=== PATIENT | female | born 1945 | race African-American/Black ===

== ENCOUNTER → 2016-12-27 | Outpatient (CLI) | payer MEDICARE, OTHER ==
[~2016-12-27] MED LIST: ASPI-110 PO; ATOR10TA15 PO; CO Q100C9 PO; DIOV160T3 PO; EMPA1TAB PO; EMPA1TAB11 PO; FERR325T8 PO; GARL200T2 PO; KLOR20TA6 PO; LASI20TA PO; LOSA100T2 PO; MAGN400T PO; MAGO400T2 PO; MULT1TAB46 PO; OXYC1TAB63 PO; PLAV75TA29 PO; POTA-243 PO; TRIL135C PO; VITA-136 PO; VITA100064 PO; VITA500T49 PO; VITA500T83 PO
[2016-12-27 15:07] LABS: AUTOMATED NEUTROPHIL # 5.3 TH/MM3 (1.8-7.7); BASOPHIL % 0.5 % (0.0-2.0); EOSINOPHIL # 0.2 TH/MM3 (0-0.4); EOSINOPHIL % 2.6 % (0.0-4.0); HEMATOCRIT 34.5 % (35.0-46.0); HEMO FLAGS DIFF FINAL; LYMPH % 31.4 % (9.0-44.0); LYMPHOCYTE # 2.8 TH/MM3 (1.0-4.8); MEAN CELL VOLUME 85.6 FL (80.0-100.0); MEAN CORPUSCULAR HEMOGLOBIN 28.4 PG (27.0-34.0); MEAN CORPUSCULAR HGB CONC 33.1 % (32.0-36.0); MONO % 6.7 % (0.0-8.0); NEUT % 58.8 % (16.0-70.0); PLATELET COUNT 207 TH/MM3 (150-450); RED BLOOD COUNT 4.03 MIL/MM3 (4.00-5.30); RED CELL DISTRIBUTION WIDTH 14.7 % (11.6-17.2)
[2016-12-27 15:25] LABS: PROTHROMBIN TIME - PATIENT 11.4 SEC (9.8-11.6)
[2016-12-27 15:28] LABS: ALT (GPT) 38 U/L (10-53); ANION GAP 11 MEQ/L (5-15); AST (GOT) 30 U/L (15-37); BICARBONATE 26.8 MEQ/L (21.0-32.0); BLOOD UREA NITROGEN 18 MG/DL (7-18); CHLORIDE 102 MEQ/L (98-107); GLOMERULAR FILTRATION RATE 59 ML/MIN (>89); GLUCOSE,FASTING 150 MG/DL (74-99); POTASSIUM 3.3 MEQ/L (3.5-5.1); SODIUM (NA) 140 MEQ/L (136-145)
[2016-12-27 15:30] LABS: ALKALINE PHOSPHATASE 102 U/L (45-117); TOTAL BILIRUBIN ADULT 0.7 MG/DL (0.2-1.0)
--- NOTE | 2016-12-27 17:21 | RADRPT ---
EXAM DATE/TIME: 12/27/2016 15:13 [place] COMPARISON: No previous studies available for comparison. INDICATIONS : Evaluate for pneumothorax, pneumonia and communicable diseases. Pre-op for Hysterectomy. MEDICAL HISTORY : Hypertension. Diabetes mellitus type II. Asthma. SURGICAL HISTORY : None. ENCOUNTER: Initial ACUITY: 1 day PAIN SCORE: 0/10 LOCATION: Bilateral chest FINDINGS: There is a right subclavian line in place with the tip overlying the SVC. A pneumothorax is not seen. The heart size is normal. Lungs are grossly clear. There are compressive changes at several thoracic and lumbar vertebral bodies. No effusion is seen. Old right rib fractures are seen. Clips are seen i n the upper quadrant. CONCLUSION: No acute cardiopulmonary process. Rodolfo Mcguire MD on December 27, 2016 at 17:17 Board Certified Radiologist. This report was verified electronically.
--- NOTE | 2016-12-29 08:57 | EKG ---
Date Performed: 12/27/2016 Time Performed: 14:27:55 PTAGE: 71 years EKG: Sinus rhythm WITH SINUS ARRHYTHMIA NORMAL ECG NO PREVIOUS TRACING DOCTOR: Rickie Moreland Interpretating Date/Time 12/29/2016 08:53:55
== END ==
LOC: CPRE 13:55
PROVIDERS: ATTEND Obstetrics & Gynecology Gynecologic Oncology
DX: Z01.812 Encounter for preprocedural laboratory examination (principal); Z01.811 Encounter for preprocedural respiratory examination; Z01.810 Encounter for preprocedural cardiovascular examination; C54.1 Malignant neoplasm of endometrium
CPT/HCPCS: 36415; 71020; 80053; 85025; 85610; 85730; 93005

== ENCOUNTER 2017-01-18 06:11 | Day surgery (SDC) | payer MEDICARE, OTHER ==
[2017-01-18] VITALS (10 sets, daily range): BP systolic 148–212; BP diastolic 74–112; PULSE 85–98; RESP 16–18; TEMP 97.9–99; O2SAT 95–98
[~2017-01-18] VITALS: Ht 152.4 cm; Wt 86.0 kg
[~2017-01-18 06:11] MED LIST changes: -ATOR10TA15 PO; -DIOV160T3 PO; -EMPA1TAB PO; -KLOR20TA6 PO; -LASI20TA PO; -MAGN400T PO; -OXYC1TAB63 PO; -PLAV75TA29 PO; -TRIL135C PO
[2017-01-18] MEDS ORDERED: ASPIRIN EC 81 MG TABEC PO PRN (07:00)
[2017-01-18] MEDS ORDERED: IOHEXOL 350 MG/ML 100 ML BTL (for Cath Lab) OTHER ONE (07:20)
[2017-01-18] MEDS ORDERED: HEPARIN-NS/PF INJ 1,000 ML ONE (07:46)
[2017-01-18 07:53] LABS: AUTOMATED NEUTROPHIL # 4.6 TH/MM3 (1.8-7.7); BASOPHIL % 0.4 % (0.0-2.0); EOSINOPHIL # 0.1 TH/MM3 (0-0.4); EOSINOPHIL % 1.6 % (0.0-4.0); HEMATOCRIT 32.8 % (35.0-46.0); HEMO FLAGS DIFF FINAL; LYMPH % 28.7 % (9.0-44.0); LYMPHOCYTE # 2.1 TH/MM3 (1.0-4.8); MEAN CORPUSCULAR HGB CONC 33.8 % (32.0-36.0); MONO % 8.2 % (0.0-8.0); NEUT % 61.1 % (16.0-70.0); PLATELET COUNT 172 TH/MM3 (150-450); RED BLOOD COUNT 3.82 MIL/MM3 (4.00-5.30); RED CELL DISTRIBUTION WIDTH 14.7 % (11.6-17.2); WHITE BLOOD COUNT 7.5 TH/MM3 (4.0-11.0)
[2017-01-18 08:02] LABS: APTT (PATIENT) 41.2 SEC (24.3-30.1); PROTHROMBIN TIME - PATIENT 10.8 SEC (9.8-11.6)
[2017-01-18] MEDS ORDERED: HEPARIN SODIUM - IV 10,000 UNITS/10 ML VIAL ONE (08:15)
[2017-01-18] MEDS ORDERED: NITROGLYCERIN-D5W 50 MG/250 ML 250 ML ONE (08:19)
[2017-01-18 08:22] LABS: BICARBONATE 25.7 MEQ/L (21.0-32.0); POTASSIUM 3.1 MEQ/L (3.5-5.1)
[2017-01-18] MEDS ORDERED: ATROPINE SULFATE 1 MG/10 ML SYRINGE ONE (08:30)
[2017-01-18] MEDS ORDERED: CLOPIDOGREL 300 MG TAB ONE (08:38)
[2017-01-18] MEDS ORDERED: ASPIRIN 81 MG CHEW TAB ONE (08:38)
--- NOTE | 2017-01-18 09:06 | CATHPROC ---
[employer] HIS Report Study Information Study Number Admission Scheduled Start Study Start [id number] Jan 18 2017 6:11AM 01/18/2017 Jan 18 2017 7:31AM [place] Service Cardiac Catheterization Admit Source Facility Department Other [facility] - Bail Bonding Agent Physician and Clinical Staff Initial Lopez Adams Athletic Coach Chad Cervantes,JAMAAL Recorder Mikey Doran,CONCRETE FORM SETTER AND FINISHER(BS) Recorder Pedro Everett,RT(R) ScrKamala Lyons,RT(R) (BS) Procedures Performed Procedure Location (Site) Vessel Name Coronary Angiograms LCA Left Coronary Coronary Angiograms RCA Right Coronary LV Gram-hand inj. LV LV Ventricle PTCA RCA Prox Right Coronary Stent RCA Prox Right Coronary Wire insertion Fem Art (right) Femoral Art Equipment Time Air Motor Repairer Description Size Mfg Part Number Used/Scraped [id number] 08:15 [employer] WIRE, ASAHI PROWATER 180CM 180CM Used *[id number] CATHETER, FR5 SWAN VICKY 07:53 FISH PISANO FR 5 [id number] *[id number] Used MONITOR TRANSDUCER, TRUWAVE [id number] 07:35 FISH PISANO * Used W/STOCKCOCK *[id number] 08:22 [employer] SCI[employer]IFIC BALLOON, 3.0 12MM EMERGE MR 3.0 12MM Used *[id number] *[id number] *[id number] [id number] *[id number] 07:35 [employer] INDUSTRIES PACK, CCL CUSTOM * Used *[id number] 07:35 [employer] PACER PEN, SKIN DUAL W/ RULER * Used *[id number] 08:24 MEDTRONIC STENT, 4.0 18 INTEGRITY 4.0 18 Used *[id number] 08:23 KSE [employer]ICAL 30 MANJIT INDEFLATOR Used *[id number] PSI-4F-- 07:54 [employer] SHEATH, FR4.5 PRELUDE 11CM FR 4.5 Used [id number] 07:53 [employer] SHEATH, FR5.5 PRELUDE 11CM FR 5 [id number] 08:15 [employer] SHEATH, FR6.5 PRELUDE 11CM FR 6.5 038ACT Used *[id number] 07:35 [employer] WIRE, 3MMJ .035 180CM 180CM Used *[id number] 07:35 NAMIC MANIFOLD, 4 PORT * Used *[id number] 07:35 [employer]COMED OMNIPAQUE, 350 MG, 150ML 150ML [id number] Used [id number] 07:35 [employer] BLANKET,WARM AIR CCL * Used *[id number] 07:35 TERUMO MEDICAL SHEATH, FR4 TERUMO (10CM) FR 4 Used *[id number] Equipment Model, Serial, Lot Number and Expiration Data Description Model Number Serial Number Lot Number Expiration Date BALLOON, 3.0 12MM EMERGE MR [id number] 07-26-2019 SHEATH, FR6.5 PRELUDE 11CM [id number] 11-12-2019 STENT, 4.0 18 INTEGRITY [id number] 11-02-2017 History: Current Medications Medication Dosage/Unit Route Frequency Last Date/Time Taken Glucophage History: Allergies Allergy Reaction No Known Allergies History: Risk Factors Family History of Hypertension Dyslipidemia Previous [place] Previous Heart Failure Premature CAD Yes No No No No Prior Valve Prior PCI Prior CABG Surgery No No No Cerebrovascular Peripheral Artery Chronic Lung On Dialysis Diabetes Diabetes Therapy Disease Disease Disease No No No No Yes Oral History: Stress Tests Stress or Imaging Studies Performed Yes Standard Exercise Stress Test No Stress Echo No Stress Test SPECT Stress Test SPECT Result Stress Test SPECT Ischemia Risk/Extent Yes Positive Intermediate Stress Test CMR No Cardiac CTA Coronary Calcium Score No No History: Other Disease Selection Items Cancer HTN History: Other Current Smoker No Labs Hgb (g/dl) Hct (%) RBC (MIL/MM3) WBC (l/cumm) Platelets (thousands) 11.60-17.00 35.00-51.00 4.00-5.90 4.00-11.00 150.00-450.00 11.1 32.8 3.8 7.5 172 Glucose (mg/dl) BUN (mg/dl) Creatinine (mg/dl) BUN:Creatinine (1:x) 74.00-106.00 7.00-18.00 0.50-1.30 10.00-20.00 192 18 1.1 16.4 Na (meq/l) K (meq/l) Cl (meq/l) CO2 (mmol/L) Ca (mg/dl) 136.00-145.00 3.50-5.10 98.00-107.00 21.00-32.00 8.50-10.10 138 3.1 102 25.7 8.6 PT (sec) PTT (sec) INR (PTT:PT) 9.80-11.60 24.30-30.10 0.90-1.10 10.8 41.2 1 CPK-MB (ng/ML) 0.50-3.60 Not Drawn Medication Medication Total Dose (Bolus/Oral) Medication Total Dosage/Unit 1% XYLOCAINE 10 mL ASPIRIN 81 mg HEPARIN 5300 units PLAVIX 300 mg Medications (Bolus/Oral) Medication Time Given Dosage/Unit Administered By Reason 1% XYLOCAINE 01/18/2017 7:59:50 AM 10 mL Lopez Gallego 10 mL 1% XYLOCAINE given in lab by Lopez Gallego in Right Groin via Subcutaneous. Ordered by Lopez Grissom. HEPARIN 01/18/2017 8:16:47 AM 5300 units Chad Cervantes 5300 units HEPARIN given in lab by Chad Cervantes RN via Peripheral IV. Ordered by Lopez Gallego. PLAVIX 01/18/2017 8:42:49 AM 300 mg Chad Cervantes 300 mg PLAVIX given in lab by Chad Cervantes RN via Oral. Ordered by Lopez Gallego. ASPIRIN 01/18/2017 8:42:58 AM 81 mg Chad Cervantes 81 mg ASPIRIN given in lab by Chad Cervantes RN via Subcutaneous. Ordered by Lopez Gallego. Medication (Drip) Medication Time Given Dosage/Unit Concentration/Unit Diluent (ml) Solution IV Solutions 01/18/2017 7:32:35 AM 0 mL (IV) 500 NaCl .9 Patient arrived on IV Solutions via Central IV. Pump/Drip Flow = 20 ml/hr using NaCl .9. Ordered by Lopez Clay. NITROGLYCERIN DRIP 01/18/2017 8:21:30 AM 50 mcg/min 50 mg 250 D5W 50 mcg/min NITROGLYCERIN DRIP given in lab by Chad Cervantes RN via Peripheral IV. Pump/Drip Flow = 15 ml/hr using D5W with a concentration of 50 mg in 250 ml. Ordered by Lopez Gallego. Initial Case Assessment Cardiovascular HR Rhythm NIBP Chest Pain 88 SR 175/86 0 Edema Present Skin color Skin None Normal Warm Dry Circulatory - Right Pulses Dorsalis Pedis Femoral 1 2 Scale (0,1,2,3,4,d) Circulatory - Left Pulses Dorsalis Pedis Femoral 1 2 Scale (0,1,2,3,4,d) Circulatory - Lower Extremities Color Lower Right Color Lower Left Normal Normal Neurological State Oriented to time-place- Alert Moves all extremities person Respiration - General Respiration Rate SpO2 (%) O2 (lpm) (B/min) 25 95 0 Final Case Assessment Cardiovascular HR Rhythm NIBP Chest Pain 78 Sinus 155/78 0 Edema Present Skin color Skin None Normal Warm Dry Circulatory - Right Pulses Dorsalis Pedis Femoral 1 2 Scale (0,1,2,3,4,d) Circulatory - Left Pulses Dorsalis Pedis Femoral 1 2 Scale (0,1,2,3,4,d) Neurological State Oriented to time-place- Alert Moves all extremities person Respiration - General Respiration Rate SpO2 (%) O2 (lpm) (B/min) 16 95 0 Chronological Log Time Study Chronological Log 7:30:49 Patient arrived via Bed. 7:30:51 Patient Name, D.O.B, / Armband Verified By R.N. 7:30:52 Consent signed by the physician and the patient and verified by the Bail Bonding Agent staff. 7:30:53 Pre-op and post- op instructions given; patient acknowledges understanding of instructions. 7:30:54 Verbal Stimulation=2 Physical Stimulation=2 Airway=2 Respiration=2 TOTAL=8. (0=absent, 1=li mited, 2=present) 7:31:54 Patient has been NPO for More than 6Hrs. 7:32:25 Skin Breakdown- none per patient. 7:32:26 Patient Warmer Placed on the Table. 7:32:34 A # 20 IV was noted in the Subclav. Vein (Rt). Grade = 0 7:32:35 Patient arrived on IV Solutions via Central IV. Pump/Drip Flow = 20 ml/hr using NaCl .9. Or dered by Lopez Gallego. 7:32:38 History and physical on the chart or being dictated. Assessment: Initial Case, HR=88 BPM, Rhythm=SR, QJQK=105/86 mmhg, Chest Pain=0, Edema=None, Col or=Normal, Skin = Warm, Dry Right Pulses: Johan Ped=1, Femoral=2 Left Pulses: Johan Ped=1, Femoral=2 7:32:39 Lower Right Extremities: Color=Normal Lower Left Extremities: Color=Normal Neurological: State=Alert, Ox3, SINGLETARY Respiration: Resp=25 B/min, SpO2=95 %, O2=0 lpm Vitals capture started with the following parameters, Patient=Adult, Interval=5 min, Initial Pr hqgrzh=556 mmHg, 7:34:50 Deflation Rate=5 mmHg 7:36:27 HR=91 bpm, RWLP=378/86 mmhg, SpO2=95.0 %, Resp=25 B/min, Pain=0, Clary=10, Dey=2 7:40:39 HR=90 bpm, RCUG=003/85 mmhg, SpO2=96.0 %, Resp=22 B/min, Pain=0, Clary=10, Dey=2 7:45:42 HR=87 bpm, WYCO=330/87 mmhg, SpO2=96.0 %, Resp=21 B/min, Pain=0, Clary=10, Dey=2 7:51:18 Bilateral groins prepped with 2% chlorhexidine, and with a 3 min. waiting time. 7:51:24 HR=87 bpm, VAOS=518/91 mmhg, SpO2=96.0 %, Resp=28 B/min, Pain=0, Clary=10, Dey=2 7:55:26 MD paged 7:55:38 HR=88 bpm, DZFZ=951/87 mmhg, SpO2=96.0 %, Resp=14 B/min, Pain=0, Clary=10, Dey=2 7:57:00 MD arrived. 7:58:17 Pressure channel 1 zeroed. Time Out. Correct patient, correct procedure,correct physician, ,power injector loaded or not lo aded with contrast with 7:59:15 surgical team present. Time Out Concurred by MD, individual staff and STUDIO ENGINEER in procedure 7:59:48 Case Start 10 mL 1% XYLOCAINE given in lab by Lopez Gallego in Right Groin via Subcutaneous. Ordered by Lashonda, 7:59:50 Lopez. 8:01:32 HR=91 bpm, OAZL=084/103 mmhg, SpO2=97.0 %, Resp=20 B/min, Pain=0, Clary=10, Dey=2 8:01:32 Access site was Right Femoral Vein. 8:01:42 A SHEATH, FR5.5 PRELUDE 11CM FR 5 was advanced into the Fem Vein (right) using the Percutane ous technique. 8:02:55 Access site was Right Femoral Artery. 8:03:00 A SHEATH, FR4 TERUMO (10CM) FR 4 was advanced into the Fem Art (right) using the Percutaneou s technique. 8:03:40 Saturation: Site=FA (Femoral Artery) , O2=97.5 %, Hgb=11.1 gm/dl, Condition=Condition 1. Use d in calculation. 8:04:16 A CATHETER, FR5 SWAN VICKY MONITOR FR 5 was inserted via Fem Vein (right) 8:05:42 HR=86 bpm, IIYF=271/101 mmhg, SpO2=96.0 %, Resp=23 B/min, Pain=0, Clary=10, Dey=2 Recorded Pressure: PCW, HR=87, Condition=Condition 1 8:05:44 (Pulmonary Capillary Wedge) PCW Recorded Pressure: MPA, HR=86, Condition=Condition 1 8:06:00 (Main Pulmonary Artery) MPA 11/02/19 8:06:42 Saturation: Site=PA (Pulmonary Artery) , O2=66.7 %, Hgb=11.1 gm/dl, Condition=Condition 1. U sed in calculation. Recorded Pressure: RV, HR=93, Condition=Condition 1 8:07:06 (Right Ventricle) RV 31/-1/5 Recorded Pressure: RA, HR=87, Condition=Condition 1 8:07:27 (Right Atrium) RA 12/4 8:07:52 Pfeifer Vicky Catheter Removed Recorded Pressure: LV, HR=86, Condition=Condition 1 8:08:56 (Left Ventricle) LV 171/3/10 8:09:02 The LV was manually injected with ~CCS~ cc's and visualized. contrast used. Recorded Pressure: LV, Ao, HR=86, Condition=Condition 1 8:09:19 (Left Ventricle) LV 178/3/8, (Aorta) Ao 182/86/126 8:09:23 The RCA was injected and visualized at various angles. contrast used. 8:10:41 HR=87 bpm, BJVP=133/98 mmhg, SpO2=96.0 %, Resp=18 B/min, Pain=0, Clary=10, Dey=2 Recorded Pressure: Ao, HR=87, Condition=Condition 1 8:11:13 (Aorta) Ao 185/89/129 8:11:35 Catheter was removed 8:11:36 A catheter was advanced over a wire. contrast was used for injections. 8:11:42 The LCA was injected and visualized at various angles. OMNIPAQUE, 350 MG, 150ML 150ML used. 8:12:47 Catheter was removed 8:13:54 A sheath was exchanged in the Fem Art (right). This was necessary in order to accomodate a l arger catheter. 8:14:45 Activated Clotting Time Drawn 8:15:42 HR=85 bpm, XCAT=680/97 mmhg, SpO2=98.0 %, Resp=19 B/min, Pain=0, Clary=10, Dey=2 A JR 4.0 GUIDE CATHETER FR 6 was advanced over a wire. OMNIPAQUE, 350 MG, 150ML 150ML was used f or 8:15:54 injections. 8:16:02 Reference ECG taken 8:16:47 5300 units HEPARIN given in lab by Chad Cervantes, JAMAAL via Peripheral IV. Ordered by Lopez Gallego. 8:20:37 HR=83 bpm, UXQA=850/97 mmhg, SpO2=97.0 %, Resp=21 B/min, Pain=0, Clary=10, Dey=2 8:21:06 A WIRE, ASAHI PROWATER 180CM 180CM was inserted via Fem Art (right). 8:21:15 Interventional wire has crossed the lesion 50 mcg/min NITROGLYCERIN DRIP given in lab by Chad Cervantes, JAMAAL via Peripheral IV. Pump/Drip Fl ow = 15 ml/hr 8:21:30 using D5W with a concentration of 50 mg in 250 ml. Ordered by Lopez Gallego. A BALLOON, 3.0 12MM EMERGE MR 3.0 12MM was inserted over WIRE, ASAHI PROWATER 180CM 180CM via th e RCA 8:22:15 Prox. A BALLOON, 3.0 12MM EMERGE MR 3.0 12MM over a WIRE, ASAHI PROWATER 180CM 180CM in the RCA Prox w as 8:22:48 inflated using a 30 MANJIT INDEFLATOR at 8 manjit for 15 sec. 8:23:30 Balloon Removed. An STENT, 4.0 18 INTEGRITY 4.0 18 Bare Metal Stent was inserted through a JR 4.0 GUIDE CATHETER FR 6 over a 8:24:48 WIRE, ASAHI PROWATER 180CM 180CM. 8:25:36 HR=65 bpm, FTWK=279/59 mmhg, SpO2=95.0 %, Resp=19 B/min, Pain=0, Clary=10, Dey=2 A STENT, 4.0 18 INTEGRITY 4.0 18 was deployed using a 30 MANJIT INDEFLATOR at 14 atmospheres for 18 seconds in 8:25:48 the RCA Prox. 8:26:19 Delivery device removed 8:27:44 Catheter was removed 8:27:54 Wire removed 8::59 Case End 8:30:39 HR=61 bpm, UYRM=988/50 mmhg, SpO2=97.0 %, Resp=9 B/min, Pain=0, Clary=10, Dey=2 8:33:21 NIBP STAT measurement started. 8:34:39 HR=73 bpm, KKAG=931/77 mmhg, SpO2=98.0 %, Resp=16 B/min, Pain=0, Clary=10, Dey=2 8:35:04 Chest tightness complaint. A JR 4.0 INFINITI CATHETER FR 4 was advanced over a wire. OMNIPAQUE, 350 MG, 150ML 150ML was use d for 8:35:40 injections. 8:36:23 HR=62 bpm, ZQVE=965/68 mmhg, SpO2=96.0 %, Resp=17 B/min, Pain=0, Clary=10, Dey=2 8:36:29 The RCA was injected and visualized at various angles. OMNIPAQUE, 350 MG, 150ML 150ML used. 8:37:36 Catheter was removed 8:37:37 Case End 8:40:37 HR=83 bpm, GRAZ=411/79 mmhg, SpO2=94.0 %, Resp=16 B/min, Pain=0, Clary=10, Dey=2 8:42:49 300 mg PLAVIX given in lab by Chad Cervantes, RN via Oral. Ordered by Lopez Gallego. 8:42:58 81 mg ASPIRIN given in lab by Chad Cervantes, RN via Subcutaneous. Ordered by Lloyd Gallego. 8:45:42 HR=78 bpm, JGEC=533/78 mmhg, SpO2=95.0 %, Resp=16 B/min, Pain=0, Clary=10, Dey=2 8:50:14 Vitals capture stopped. Assessment: Final Case, HR=78 BPM, Rhythm=Sinus, XSXC=580/78 mmhg, Chest Pain=0, Edema=None, Color=Normal, Skin = Warm, Dry Right Pulses: Johan Ped=1, Femoral=2 8:50:38 Left Pulses: Johan Ped=1, Femoral=2 Neurological: State=Alert, Ox3, SINGLETARY Respiration: Resp=16 B/min, SpO2=95 %, O2=0 lpm 8:50:45 In the Fem Art (right) the SHEATH, FR6.5 PRELUDE 11CM FR 6.[address] by Kamala Cortes RT(R) (BS). 8:50:55 In the Fem Art (right) the SHEATH, FR5.5 PRELUDE 11CM FR [address] by Kamala Shay RT(R) (BS). 8:51:02 Sterile dressing applied to site 8:51:02 No case complications noted. 8:51:04 Cine recording checked. 8:51:06 Bedside Report will be given. 8:51:07 Implantable Device card placed in patient's chart. 8:51:13 A Left and Right Heart Cath was performed. 8:51:41 [facility] Study - Contrast Media Used In Study Contrast Total Opened (mL) Total Used (mL) Total Wasted (mL) Omnipaque 150 100 50 End Study - Maximum Contrast Load Max Contrast Load (mL) 400.4 End Study - Radiation Exposure Fluoro Time (minutes) 6.5 End Study - Patient Disposition Complications Transferred To Interventional Outcome No Outpatient Bed successful
--- NOTE | 2017-01-18 10:17 | MA ---
cc: LUI PALOMARES M.D. DATE 01/18/2017 PROCEDURE PERFORMED Right heart catheterization, left heart catheterization, left ventriculography, coronary angiography, PCI bare metal stent of the proximal right coronary artery. INDICATIONS Moderate sized reversible defect in the anteroapical wall, intermediate risk nuclear stress test, fatigue, anginal equivalent unstable angina, [place] Cardiovascular Society Class III angina, coronary artery disease, preop for noncardiac surgery. PROCEDURAL STATEMENT The patient was brought to the cardiac catheterization laboratory, prepped and draped in the usual sterile fashion. 10 cc's of 1% lidocaine was used to locally anesthetize the right common femoral artery. A 4-Palestinian sheath was successfully placed in the right common femoral artery. A 5-Palestinian sheath placed in the right common femoral vein. Right heart catheterization was performed first with the following findings: Pulmonary capillary wedge pressure 16/13-9. PA pressure 30/9-19. RV pressure 31/1-5. RA pressure 12/5-4. Cardiac cath output by Yuri is 4.9 liters per minute. Cardiac index by Yuri 2.7 liters per meter squared per minute. SVR 1973. FA sat 97.5%. PA sat 66.7%. Left heart catheterization was then performed with a 4-Palestinian JR-4, JL-4 catheter with following findings. LV pressure 180/10-11, EF 60%. The right coronary artery is large and dominant. It has a long complex sequential 95% stenosis in the proximal segment. The zkz-np-uytgjn segment is focally tortuous with a 60% stenosis. There is mild diffuse disease in the mid segment up to 10-20% angiographically. The left main coronary artery has no significant disease angiographically. The left circumflex vessel is a small vessel with no significant disease angiographically. The first obtuse marginal vessel has a high takeoff. There is an ostial 20% stenosis. It is a medium size vessel. The LAD is a large transapical vessel that has a proximal 30% stenosis. First and second diagonal arteries are small to medium-sized vessels with no significant disease angiographically. I spoke to Dr. Beaver explained to him that the patient had a complex 95% stenosis in the proximal right coronary artery and that the right coronary artery is a large dominant vessel with a large amount of jeopardized myocardium distal to the lesion. I did think with the patient's new onset cardiac symptom of fatigue and her inability to take statins due to severe myalgias and memory loss that surgery would be high risk with this lesion. Therefore, I do think PCI is medically indicated. Dr. Beaver agreed. I explained as it is a large vessel, my plan was to use a 4-0 stent and given the large diameter, I think her risk for surgery will be moderate two weeks after aspirin and Plavix use. Therefore, Dr. Beaver and I agreed with the plan and I proceeded with a PCI the right coronary artery. The patient was given 60 units per kilo of heparin ACT 320. A 6-Palestinian JR-4 guide 0.014 Vir[employer]inj[employer]water guidewire and a 3.0 x 12 Euphora balloon was used to predilate the lesion with one inflation to 12 atmospheres for 20 seconds. I then placed a 4.0 x 18 Integrity stent at the lesion site with one inflation 14 atmospheres for 20 seconds. The stenosis went from 95% to 0% with CLEVE-III flow. CONCLUSION 1. New onset cardiac symptom of fatigue, anginal equivalent unstable angina, [place] Cardiovascular Society class III angina, intermediate risk nuclear stress test. 2. History of coronary disease, culprit 95% stenosis as detailed above of the proximal right coronary artery. 3. Normal LV systolic function ejection fraction 60%. 4. Successful PCI of the proximal right coronary from 95% to 0% with CLEVE-III flow. 5. Recommend aspirin 81 mg daily, Plavix 300 mg load and then 75 mg daily for 12-15 months. NOTE, Optimally would prefer six weeks of aspirin and Plavix before surgery. Obviously if the surgery is more urgently indicated, I still think at least four weeks of Plavix will be adequate and if necessary keep him more of an emergent procedure two weeks would be adequate as well. Once surgery is completed, would recommend resuming aspirin and Plavix with Plavix being discontinued at 12-15 months postprocedure. 6. The patient is intolerant of statins. She has severe myalgias and also memory loss. MD WILMA Burrows/CHRISTEN /8:41 AM /9:53 AM
[2017-01-18] MEDS ORDERED: POTASSIUM CHLORIDE 20 MEQ CONTROLLED RELEASE TAB PO ONE ×2 (10:53→13:00)
[2017-01-18] MEDS ORDERED: MAGNESIUM OXIDE 400 MG TAB PO SCH (12:00)
[2017-01-18] MEDS ORDERED: POTASSIUM CHLORIDE 20 MEQ CONTROLLED RELEASE TAB PO SCH (21:00)
[2017-01-18] MEDS: POTASSIUM CHLORIDE 10 MEQ CONTROLLED RELEASE TAB PO SCH (21:23)
[2017-01-19] VITALS (13 sets, daily range): BP systolic 140–166; BP diastolic 68–91; PULSE 68–96; RESP 16; TEMP 98.2–98.3; O2SAT 93–96
[2017-01-19] MEDS ORDERED: LOSARTAN 50 MG TAB PO SCH (09:00)
[2017-01-19] MEDS ORDERED: HYDROCHLOROTHIAZIDE 25 MG TAB PO SCH (09:00)
[2017-01-19] MEDS: POTASSIUM CHLORIDE 10 MEQ CONTROLLED RELEASE TAB PO SCH (09:31)
[2017-01-19] MEDS: MAGNESIUM OXIDE 400 MG TAB PO SCH ×2 (10:22→10:48)
[2017-01-19] MEDS ORDERED: PLAV75TA29 PO (10:31)
[2017-01-19] MEDS ORDERED: CLOPIDOGREL 75 MG TAB PO SCH (11:00)
[2017-03-02] MEDS ORDERED: ATOR10TA15 PO (06:47)
[2017-03-02] MEDS ORDERED: EMPA1TAB PO (06:47)
[2017-03-03] MEDS ORDERED: OXYC1TAB63 PO (07:22)
== END 2017-01-19 11:13 | disposition home or self-care (01) ==
LOC: HDIC 06:11 → HDOC 06:11 → HCIN 17:49 → HDOC 01-19 11:13
PROVIDERS: ATTEND Internal Medicine Interventional Cardiology
DX: I25.110 Atherosclerotic heart disease of native coronary artery with unstable angina pectoris (principal); R41.3 Other amnesia; M79.1 Myalgia; I10 Essential (primary) hypertension; E11.9 Type 2 diabetes mellitus without complications; Z79.84 Long term (current) use of oral hypoglycemic drugs; Z79.82 Long term (current) use of aspirin
CPT/HCPCS: 80048; 82810; 85025; 85610; 85730; 92928; 93460; C1725; C1769; C1876; C1887; C1893; J0461; J1644; Q9967

== ENCOUNTER → 2017-02-27 | Outpatient (CLI) | payer MEDICARE, OTHER ==
[~2017-02-27] MED LIST changes: +ATOR10TA15 PO; -CO Q100C9 PO; +EMPA1TAB PO; -FERR325T8 PO; -GARL200T2 PO; -MULT1TAB46 PO; +OXYC1TAB63 PO; +PLAV75TA29 PO; -VITA-136 PO; -VITA100064 PO; -VITA500T49 PO; -VITA500T83 PO
[2017-02-27 14:46] LABS: AUTOMATED NEUTROPHIL # 6.5 TH/MM3 (1.8-7.7); BASOPHIL % 0.2 % (0.0-2.0); EOSINOPHIL # 0.1 TH/MM3 (0-0.4); EOSINOPHIL % 1.1 % (0.0-4.0); HEMATOCRIT 30.7 % (35.0-46.0); HEMO FLAGS DIFF FINAL; LYMPH % 25.9 % (9.0-44.0); LYMPHOCYTE # 2.6 TH/MM3 (1.0-4.8); MEAN CELL VOLUME 84.8 FL (80.0-100.0); MEAN CORPUSCULAR HEMOGLOBIN 28.5 PG (27.0-34.0); MEAN CORPUSCULAR HGB CONC 33.6 % (32.0-36.0); MONO % 7.2 % (0.0-8.0); NEUT % 65.6 % (16.0-70.0); PLATELET COUNT 214 TH/MM3 (150-450); RED BLOOD COUNT 3.62 MIL/MM3 (4.00-5.30)
[2017-02-27 15:06] LABS: APTT (PATIENT) 39.4 SEC (24.3-30.1); PROTHROMBIN TIME - PATIENT 11.4 SEC (9.8-11.6)
[2017-02-27 15:25] LABS: ANION GAP 9 MEQ/L (5-15); AST (GOT) 17 U/L (15-37); BICARBONATE 25.5 MEQ/L (21.0-32.0); BLOOD UREA NITROGEN 18 MG/DL (7-18); CHLORIDE 105 MEQ/L (98-107); GLOMERULAR FILTRATION RATE 63 ML/MIN (>89); GLUCOSE,FASTING 95 MG/DL (74-99); POTASSIUM 3.3 MEQ/L (3.5-5.1); SODIUM (NA) 139 MEQ/L (136-145)
[2017-02-27 15:28] LABS: ALKALINE PHOSPHATASE 100 U/L (45-117); ALT (GPT) 22 U/L (10-53); TOTAL BILIRUBIN ADULT 0.7 MG/DL (0.2-1.0)
== END ==
LOC: HPRE 13:32
PROVIDERS: ATTEND Obstetrics & Gynecology Gynecologic Oncology
DX: C54.1 Malignant neoplasm of endometrium (principal); Z79.01 Long term (current) use of anticoagulants
CPT/HCPCS: 36415; 80053; 85025; 85610; 85730